=== PATIENT | male | born 1950 | race Caucasian/White ===

== ENCOUNTER 2017-12-30 10:30 | Inpatient (IN) | payer MEDICARE, OTHER ==
[~2017-12-30] VITALS: Ht 175.3 cm; Wt 93.5 kg
[2017-12-30] MEDS ORDERED: METF500T PO (11:43)
[2017-12-30] MEDS ORDERED: FISH1CAP15 PO (11:43)
[2017-12-30] MEDS ORDERED: HYDR12.5 PO (11:43)
[2017-12-30] MEDS ORDERED: ATOR20TA66 PO (11:43)
[2017-12-30] MEDS ORDERED: ASPI-1265 PO (11:43)
[2017-12-30] MEDS ORDERED: MULT-1180 PO (11:43)
[2017-12-30] MEDS ORDERED: UBID100C16 PO (11:43)
[2017-12-30 12:31] LABS: BASOPHILS # (AUTO) 0.1 X10'3 (0-0.2); EOSINOPHILS # (AUTO) 0.1 X10'3 (0-0.9); EOSINOPHILS % (AUTO) 1.9 % (0-6); LYMPHOCYTES # (AUTO) 1.4 X10'3 (1.1-4.8); LYMPHOCYTES % (AUTO) 27.9 % (21-51); MEAN CORPUSCULAR HEMOGLOBIN 29.9 PG (27.0-31.0); MEAN CORPUSCULAR VOLUME 85.4 FL (78-98); MEAN PLATELET VOLUME 8.8 FL (7.4-10.4); MONOCYTES # (AUTO) 0.6 X10'3 (0-0.9); MONOCYTES % (AUTO) 11.9 % (2-12); NEUTROPHILS # (AUTO) 2.9 X10'3 (1.8-7.7); NEUTROPHILS % (AUTO) 57.3 % (42-75); PRE OP HEMATOCRIT 43.9 % (42.0-52.0); PRE OP HEMOGLOBIN 15.4 g/dL (14.0-17.9); PRE OP PLATELET COUNT 199 X10'3 (140-440); RED BLOOD COUNT 5.14 X10'6 (4.70-6.10); RED CELL DISTRIBUTION WIDTH 13.3 % (11.5-14.5)
[2017-12-30 12:40] LABS: HEMOGLOBIN A1C 5.8 % (4.5-6.2)
[2017-12-30 12:53] LABS: ALBUMIN/GLOBULIN RATIO 1.1 (1.1-1.5); ALKALINE PHOSPHATASE 75 IU/L (46-116); BLOOD UREA NITROGEN 15 MG/DL (7-18); BUN/CREATININE RATIO 13.6 (5.4-32.0); CALCIUM 9.5 MG/DL (8.5-10.1); CHLORIDE 104 MMOL/L (99-107); PRE OP ALT 33 U/L (30-65); PRE OP ANION GAP 8 (8-16); PRE OP AST 15 U/L (10-37); PRE OP BILIRUB, TOTAL 0.5 MG/DL (0.0-1.0); PRE OP GLUCOSE 101 MG/DL (70-104); PRE OP POTASSIUM 4.2 MMOL/L (3.4-5.1); PRE OP SODIUM 139 MMOL/L (135-145); TOTAL CARBON DIOXIDE 27.3 MMOL/L (24-32); TOTAL PROTEIN 7.7 G/DL (6.4-8.2); eGFR 66 ML/MIN
[2018-01-02] MEDS ORDERED: LOSA100T28 PO (10:50)
[2018-01-03] VITALS (18 sets, daily range): BP systolic 118–168; BP diastolic 72–96
[2018-01-03] MEDS ORDERED: ringers solution, lacted 1,000 ML IV SCH ×2 (05:00→08:18)
[2018-01-03] MEDS ORDERED: tranexamic acid inj. 950 MG in normal saline 100ml IV soln 90.5 ML IV ONE ×2 (05:30→09:30)
[2018-01-03] MEDS ORDERED: VANCOMYCIN INJ 1000 MG in NORMAL SALINE 250ml IV.SOLN IV ONE (05:30)
[2018-01-03] MEDS ORDERED: famotidine 20mg tablet PO ONE (05:30)
[2018-01-03] MEDS ORDERED: ceFAZolin inj. 2,000 MG in normal saline 100ml IV soln 100 ML IV ONE (05:30)
[2018-01-03] MEDS ORDERED: LIDOcaine 1% (10mg/ml) 2ml vial ONE (07:31)
[2018-01-03] MEDS ORDERED: proCHLORperazine 10 MG/2 ml inj IV PRN (08:20)
[2018-01-03] MEDS ORDERED: ondansetron/PF 4mg/2ml inj IV PRN ×2 (08:20→14:05)
[2018-01-03] MEDS ORDERED: morphine 4 MG/ML inj SYRINge IV PRN ×2 (08:20)
[2018-01-03] MEDS ORDERED: meperidine/PF 50mg/ml syringe IV PRN ×3 (08:20)
[2018-01-03] MEDS ORDERED: ROPIVAcaine 0.5% (5mg/ml) 30ml vial ONE ×2 (10:26→12:26)
[2018-01-03] MEDS ORDERED: ketorolac trometh. 30mg/ml inj. ONE (10:26)
[2018-01-03] MEDS ORDERED: fentaNYL/PF 50MCG/1 ML 2ML syringe ONE (11:54)
[2018-01-03] MEDS ORDERED: MIDAZolam 5mg/5ml vial ONE (11:54)
[2018-01-03] MEDS ORDERED: propofol inj 20 ML IV ONE (12:09)
[2018-01-03] MEDS ORDERED: LIDOcaine 1%/PF (10mg/ml) 5ml vial ONE (12:26)
[2018-01-03] MEDS ORDERED: vancomycin 1,000mg inj ONE (13:38)
[2018-01-03] MEDS ORDERED: oxyCODONE IR 5mg (immed. release) tablet PO PRN ×2 (14:05)
[2018-01-03] MEDS ORDERED: HYDROmorphone inj. 0.5 MG/0.5 ML DISP.SYRIN IV PRN ×2 (14:05)
[2018-01-03] MEDS ORDERED: diphenhydrAMINE 25mg capsule PO PRN ×2 (14:05)
[2018-01-03] MEDS ORDERED: acetaminophen 325mg tablet PO PRN (14:05)
[2018-01-03] MEDS ORDERED: magnesium hydroxide 30ml (MOM) UD suspension PO PRN (14:05)
[2018-01-03] MEDS ORDERED: bisacodyl 10mg suppository rectal RC PRN (14:05)
[2018-01-03] MEDS: ceFAZolin 1GM/D5W- ADD-VANTAGE 50 ML IV SCH (16:12)
[2018-01-03] MEDS: potassium cl 20mEq in 1/2 NS 1,000 ML IV SCH ×2 (16:12→22:01)
[2018-01-03] MEDS ORDERED: tranexamic acid inj. 900 MG in normal saline 100ml IV soln 100 ML IV ONE (17:00)
[2018-01-03] MEDS: ketorolac tromethamine 15mg/ml inj. IV SCH (19:50)
[2018-01-03] MEDS: acetaminophen 325mg tablet PO SCH (19:50)
[2018-01-03] MEDS ORDERED: vancomycin/NS 1 GM ADD-VANTAGE 250 ML IV SCH (20:00)
[2018-01-03] MEDS: gabapentin 300mg capsule PO SCH (20:50)
[2018-01-03] MEDS ORDERED: atorvastatin 20mg tablet PO SCH (21:00)
[2018-01-03] MEDS ORDERED: sennosides 8.6mg tablet PO SCH (21:00)
[2018-01-03] MEDS ORDERED: aspirin 81mg tab.chew PO SCH (21:00)
[2018-01-04] MEDS: ceFAZolin 1GM/D5W- ADD-VANTAGE 50 ML IV SCH
[2018-01-04] MEDS: ketorolac tromethamine 15mg/ml inj. IV SCH ×2 (01:46→07:59)
[2018-01-04] MEDS: acetaminophen 325mg tablet PO SCH ×2 (01:46→08:01)
[2018-01-04 02:00] VITALS: BP 141/84
[2018-01-04] MEDS: potassium cl 20mEq in 1/2 NS 1,000 ML IV SCH (03:29)
[2018-01-04 05:30] LABS: BASOPHILS % (AUTO) 0.1 % (0-1); EOSINOPHILS # (AUTO) 0.1 X10'3 (0-0.9); EOSINOPHILS % (AUTO) 1.3 % (0-6); HEMATOCRIT 35.7 % (42.0-52.0); HEMOGLOBIN 12.2 g/dl (14.0-17.9); LYMPHOCYTES # (AUTO) 1.1 X10'3 (1.1-4.8); LYMPHOCYTES % (AUTO) 10.6 % (21-51); MEAN CORPUSCULAR HGB CONC 34.3 % (33.0-36.5); MEAN CORPUSCULAR VOLUME 87.3 FL (78-98); MEAN PLATELET VOLUME 8.8 FL (7.4-10.4); MONOCYTES # (AUTO) 1.1 X10'3 (0-0.9); MONOCYTES % (AUTO) 9.9 % (2-12); NEUTROPHILS # (AUTO) 8.3 X10'3 (1.8-7.7); NEUTROPHILS % (AUTO) 78.1 % (42-75); PLATELET COUNT 186 X10'3 (140-440); RED BLOOD COUNT 4.09 X10'6 (4.70-6.10); RED CELL DISTRIBUTION WIDTH 13.6 % (11.5-14.5); WHITE BLOOD COUNT 10.6 X10'3 (4.5-11.0)
[2018-01-04 05:31] LABS: ANION GAP 9 (8-16); CHLORIDE 107 MMOL/L (99-107); POTASSIUM 4.5 MMOL/L (3.5-5.1); SODIUM 140 MMOL/L (135-145); TOTAL CARBON DIOXIDE 23.9 MMOL/L (24-32)
[2018-01-04 06:00] VITALS: BP 128/66
[2018-01-04] MEDS ORDERED: losartan 50mg tablet PO SCH (08:00)
[2018-01-04] MEDS ORDERED: multivitamins, therapeutics tablet PO SCH (08:00)
[2018-01-04] MEDS ORDERED: non-formulary drug (Fish Oil/Dha/Epa (Fish Oil 1,200 Mg Fish Oil) 1 EACH) PO SCH (08:00)
[2018-01-04] MEDS ORDERED: HYDROchlorothiazide 12.5mg capsule PO SCH (08:00)
[2018-01-04] MEDS: gabapentin 300mg capsule PO SCH ×2 (08:00→12:04)
[2018-01-04 10:00] VITALS: BP 118/60
[2018-01-04] MEDS ORDERED: metFORMIN 500mg tablet PO SCH (12:30)
[2018-01-04] MEDS ORDERED: celeCOXIB 100mg capsule PO SCH (20:00)
[2018-01-05] MEDS ORDERED: acetaminophen 325mg tablet PO PRN (14:05)
== END 2018-01-04 13:18 | disposition home or self-care (01) | DRG 483 ==
LOC: EDSTATUS 10:30 → PAS IN 01-03 06:56 → EDSTATUS 01-03 11:00 → ORTHO 4S 01-03 15:15
PROVIDERS: ADMIT Orthopaedic Surgery; ATTEND Orthopaedic Surgery
PROC: 0LS40ZZ Reposition Left Upper Arm Tendon, Open Approach (ICD-10-PCS; 2018-01-03)
PROC: 3E0T3BZ Introduction of Anesthetic Agent into Peripheral Nerves and Plexi, Percutaneous Approach (ICD-10-PCS; 2018-01-03)
PROC: 0RRK00Z Replacement of Left Shoulder Joint with Reverse Ball and Socket Synthetic Substitute, Open Approach (ICD-10-PCS; principal; 2018-01-03 11:50)
DX: M19.012 Primary osteoarthritis, left shoulder (principal); D62 Acute posthemorrhagic anemia; E11.9 Type 2 diabetes mellitus without complications; E78.5 Hyperlipidemia, unspecified; I10 Essential (primary) hypertension; M65.812 Other synovitis and tenosynovitis, left shoulder; M75.122 Complete rotator cuff tear or rupture of left shoulder, not specified as traumatic; M75.22 Bicipital tendinitis, left shoulder; Z79.82 Long term (current) use of aspirin; Z79.84 Long term (current) use of oral hypoglycemic drugs; Z79.899 Other long term (current) drug therapy
CPT/HCPCS: 36415; 80051; 80053; 82948; 83036; 85025; 87070; 88305; 97110; 97116; 97162; J0690; J1885; J2001; J2250; J2704; J2795; J3010; J3370; J3490; J7030; J7120